=== PATIENT | male | born 1975 | race Caucasian/White ===

== ENCOUNTER → 2020-01-16 09:27 | Outpatient (CLI) | payer OTHER, SELFPAY ==
[2020-01-17 14:18] LABS: COVID19 Sendout NOT DETECTED (Not Detect)
== END ==
PROVIDERS: Visit Provider Registered Nurse
DX: Z11.59 Encounter for screening for other viral diseases (principal)
CPT/HCPCS: 87635

== ENCOUNTER → 2020-11-13 11:42 | Outpatient (CLI) | payer OTHER, SELFPAY ==
[2020-11-13 11:56] LABS: Semen Sperm Prescence Post-Vas Absent (ABSENT)
== END ==
PROVIDERS: PCP Family Medicine; Referring Provider Family Medicine; Visit Provider Family Medicine
DX: Z98.52 Vasectomy status (principal)
CPT/HCPCS: 89321

== ENCOUNTER → 2022-05-06 11:21 | Outpatient (CLI) | payer OTHER, SELFPAY ==
[2022-05-06 12:41] LABS: COVID19 -Nasal RAPID Negative (Negative)
== END ==
PROVIDERS: PCP Family Medicine; Visit Provider Surgery
DX: Z01.812 Encounter for preprocedural laboratory examination (principal); Z20.822 Contact with and (suspected) exposure to COVID-19
CPT/HCPCS: 87635; C9803

== ENCOUNTER 2022-05-07 12:40 | Day surgery (SDC) | payer OTHER, SELFPAY ==
[2022-05-07 12:54] VITALS: BP 119/74; PULSE 69; RESP 16; TEMP 36.8; O2SAT 98; BMI 22.8
[2022-05-07] MEDS: LACTATED RINGERS 1,000 ML 150 ML IV (13:07)
--- NOTE | 2022-05-07 13:45 | PM.HP.1 ---
History of Present Illness History of Present Illness Date Patient Seen: 05/07/22 Time Patient Seen: 13:45 Chief complaint: Colonoscopy Narrative: Mark is a 46-year-old man here for colon cancer screening. He has never had a colonoscopy before. He has no known family history of colon cancer. Patient History Medical History (Updated 05/07/22 @ 13:45 by Sravan Chin MD) Ankle pain (~2010) Chicken pox (~2009) Chronic back pain Foot pain Fractures (~2013) Seasonal allergies Shoulder pain (~2013) Tinnitus (~2009) Surgical History Anesthesia History of ankle surgery (~2013) History of knee surgery (~2001) Family & Social History Family History Mother Hypertension Hyperlipidemia Grandfather Parkinson's disease Grandmother Hypertension Hyperlipidemia Grandfather Congestive heart failure Grandmother Cancer Social History: household members spouse Tobacco & Substance use: Smoking Status Never smoker alcohol intake current Substance Use Type does not use Meds Home Medications and Allergies Home Medications Medication Instructions Recorded Confirmed Type loratadine 10 mg tablet (Allergy 10 mg PO DAILY 07/08/20 05/07/22 History Relief (loratadine)) Allergies Allergy/AdvReac Type Severity Reaction Status Date / Time No Known Drug Allergies Allergy Verified 05/07/22 12:53 Exam Vital Signs (past 8 hours): - 05/07/22 12:54 Temperature 98.2 F Pulse Rate 69 Respiratory Rate 16 Blood Pressure 119/74 Pulse Oximetry 98 Oxygen Delivery Method Room Air Oxygen Flow Rate 0 Oxygen Delivery Method Room Air Oxygen Flow Rate 0 Const General: healthy appearing Assessment & Plan Assessment and plan (1) Colon cancer screening: Status: Acute Plan 46-year-old man here for colonoscopy for colon cancer screening. We reviewed the risks and benefits and he would like to proceed. Time Spent With Patient Critical Care time: I spent a total of [] minutes of critical care time on this patient's care today; this time is exclusive of procedural time.
[2022-05-07] MEDS: fentaNYL 100 MCG/2 ML INJ 125 MCG IV (13:56)
[2022-05-07] MEDS: MIDAZOLAM 5 MG/5 ML VIAL 6 MG IV (13:56)
--- NOTE | 2022-05-07 14:19 | PM.OP.COLON ---
Operative Date/Time/Diagnoses Date of procedure: 05/07/22 Time of procedure: 14:19 Pre-op diagnosis: Colon cancer screening Post-op diagnosis: same Procedure & Clinicians Study performed: Colonoscopy Same procedure as scheduled: Yes Surgeon: Sravan Chin Procedure Notes Procedure in detail: Surgeon: Sravan Chin MD Procedure: The patient was brought to the endoscopy suite, placed in left lateral decubitus position. The patient was connected to monitoring devices. A time-out was performed. Sedation was administered. Once the patient was adequately sedated, a digital rectal exam was performed and was normal. The scope was then inserted and advanced to the cecum where the appendiceal orifice was identified and photographed. The scope was then slowly withdrawn over greater than 6 minutes. The mucosa was thoroughly inspected. No abnormalities were noted. The scope was retroflexed in the rectum. No abnormalities were noted. The scope was straightened and removed. The patient was awakened and brought to recovery. Versed: 6 mg Fentanyl: 125 mcg EBL: 0 Findings: Normal colon Scope withdrawal time: 13 Sedation minutes: 25 Post-procedure Recommendations: Colonoscopy in 10 years Disposition: PACU
[2022-05-07 14:22] VITALS: BP 101/63; PULSE 65; RESP 13; TEMP 36.8; O2SAT 97
[2022-05-07 14:27] VITALS: BP 108/57; PULSE 73; RESP 13; O2SAT 98
[2022-05-07 14:32] VITALS: BP 105/67; PULSE 73; RESP 13; O2SAT 99
[2022-05-07 14:44] VITALS: BP 111/74; PULSE 12; RESP 10; TEMP 36.7; O2SAT 99
== END 2022-05-07 15:07 | disposition home or self-care (01) ==
PROVIDERS: PCP Family Medicine; Referring Provider Surgery; Visit Provider Surgery
PROC: 0DJD8ZZ Inspection of Lower Intestinal Tract, Via Natural or Artificial Opening Endoscopic (ICD-10-PCS; CPT 45378; principal; 2022-05-07 13:30)
DX: Z12.11 Encounter for screening for malignant neoplasm of colon (principal)
CPT/HCPCS: 45378; 99152; 99153; J2250; J3010

== ENCOUNTER → 2023-01-12 09:49 | Outpatient (CLI) | payer OTHER, SELFPAY ==
[2023-01-12 11:21] LABS: Cholesterol 235 mg/dL (140-199); HDL Cholesterol 50 mg/dL (40-60); LDL Cholesterol Calculated 160 mg/dL (<100); Triglycerides 123 mg/dL (35-150)
== END ==
PROVIDERS: PCP Family Medicine; Referring Provider Family Medicine; Visit Provider Family Medicine
DX: E78.5 Hyperlipidemia, unspecified (principal)
CPT/HCPCS: 36415; 80061